=== PATIENT | female | born 1955 | race Caucasian/White ===

== ENCOUNTER 2024-03-08 15:17 | Inpatient (IN) | payer MEDICARE, OTHER ==
[~2024-03-08] VITALS: Ht 162.6 cm; Wt 70.3 kg
[2024-03-08 15:40] VITALS: O2SAT 98
[2024-03-08 16:12] LABS: APPEARANCE,URINE Clear (CLEAR); BILIRUBIN,URINE Negative (NEGATIVE); BLOOD, URINE Negative Ery/uL (NEGATIVE); COLOR,URINE YELLOW (YELLOW); KETONES,URINE Negative (NEGATIVE); LEUKOCYTE ESTERASE ,URINE Trace (NEGATIVE); NITRITE, URINE Negative (NEGATIVE); PROTEIN,URINE Negative (NEGATIVE); UGLUCOSE Negative (NEGATIVE); UROBILINOGEN,URINE 0.2 EU/dL (0.2)
[2024-03-08 16:20] LABS: RBC,URINE 0-2 /HPF (0-2); WBC,URINE 0-2 /HPF (0-3)
[2024-03-08 16:21] LABS: ADD URINE CULTURE NO; BACTERIA,URINE Few /HPF (None Seen); SQUAMOUS EPITHELIAL CELL,UR Few /HPF (None Seen)
[2024-03-08] MEDS ORDERED: VALB40CA2 PO (16:28)
[2024-03-08] MEDS ORDERED: ACET325T53 PO (16:28)
[2024-03-08] MEDS ORDERED: OLAN5TAB3 PO (16:28)
[2024-03-08 16:31] LABS: AMPHETAMINE, URINE NEGATIVE (NEGATIVE); BARBITURATE, URINE NEGATIVE (NEGATIVE); BENZODIAZEPINE, URINE NEGATIVE (NEGATIVE); CANNABINOID, URINE NEGATIVE (NEGATIVE); COCCAINE, URINE NEGATIVE (NEGATIVE); OPIATE, URINE NEGATIVE (NEGATIVE); PHENCYCLIDINE SCREEN,URINE NEGATIVE (NEGATIVE)
[2024-03-08 17:03] LABS: BASOPHILS % (AUTO) 0.3 % (0.0-2.0); EOSINOPHILS # (AUTO) 0.2 K/uL (0.0-0.7); EOSINOPHILS % (AUTO) 3.9 % (0.0-6.0); HEMATOCRIT 31 % (33-45); HEMOGLOBIN 9.8 g/dL (11.5-14.8); LYMPHOCYTES % (AUTO) 38.5 % (20.0-44.0); MEAN CORPUSCULAR HEMOGLOBIN 27 PG (26.0-33.0); MEAN CORPUSCULAR HGB CONC 32 g/dl (31.0-36.0); MEAN CORPUSCULAR VOLUME 83 fL (82-100); MONOCYTES # (AUTO) 0.5 K/uL (0.1-1.30); NEUTROPHILS # (AUTO) 2.5 K/uL (1.8-8.9); NEUTROPHILS % (AUTO) 48.3 % (43.0-81.0); PLATELET COUNT (AUTO) 226 K/uL (150-450); RED BLOOD CELL COUNT(AUTO) 3.68 MIL/uL (4.0-5.2); RED CELL DISTRIBUTION WIDTH 15.2 % (11.5-15.0); WHITE BLOOD COUNT (AUTO) 5.2 K/uL (4.3-11.0)
[2024-03-08 17:11] LABS: CALCIUM, SERUM 8.6 mg/dL (8.5-10.1); CARBON DIOXIDE 33 mmol/L (21-32); CHLORIDE 106 mmol/L (98-107); CREATININE 0.8 mg/dL (0.6-1.3); GLUCOSE 87 mg/dL (74-106); POTASSIUM 4.1 mmol/L (3.5-5.1); SODIUM SERUM 141 mmol/L (136-145); UREA NITROGEN, BLOOD 19 mg/dL (7-18)
[2024-03-08 17:18] LABS: ALKALINE PHOSPHATASE 89 U/L (46-116); ASPARTATE AMINOTRANSFERASE 28 U/L (15-37); BILIRUBIN,TOTAL 0.5 mg/dL (0.2-1.0)
[2024-03-08 17:19] LABS: ALANINE AMINOTRANSFERASE 30 U/L (12-78); ALBUMIN 2.6 g/dL (3.4-5.0); ALCOHOL, BLOOD < 3 mg/dL (0-10); SALICYLATE 1.1 mg/dL (2.8-20.0); TOTAL PROTEIN, SERUM 6.9 g/dL (6.4-8.2)
[2024-03-08 17:36] LABS: BILIRUBIN,DIRECT 0.1 mg/dL (0.0-0.2)
[2024-03-08 17:37] LABS: ACETAMINOPHEN <10 ug/ml (10-30)
[2024-03-08] MEDS ORDERED: ACETAMINOPHEN 325 MG TABLET PO PRN (23:00)
[2024-03-08] MEDS ORDERED: MAG HYDROX/AL HYDROX/SIMETH 30 ML UDC PO PRN (23:00)
[2024-03-08] MEDS ORDERED: clonazePAM 1 MG TABLET PO PRN (23:00)
[2024-03-08] MEDS ORDERED: MAGNESIUM HYDROXIDE 30 ML UDC PO PRN (23:00)
[2024-03-08] MEDS ORDERED: TEMAZEPAM 7.5 MG CAPSULE PO PRN ×2 (23:00)
[2024-03-08] MEDS ORDERED: LEVO175T7 MT (23:25)
[2024-03-08] MEDS ORDERED: MIRT-90 MT (23:25)
[2024-03-08] MEDS: BLOOD SUGAR DIAGNOSTIC 1 EACH STRIP IN ONE (23:43)
[2024-03-09] MEDS: LEVOTHYROXINE SODIUM 175 MCG TABLET PO SCH (07:57)
[2024-03-09 08:00] VITALS: BP 140/65; TEMP 98.6; O2SAT 96
[2024-03-09] MEDS ORDERED: clonazePAM 0.5 MG TABLET PO PRN (08:00)
[2024-03-09] MEDS: OLANZAPINE 10 MG TABLET PO SCH (08:43)
[2024-03-09] MEDS: OLANZAPINE 2.5 MG TABLET PO SCH (09:07)
[2024-03-09 16:00] VITALS: BP 136/60; TEMP 97.6; O2SAT 98
[2024-03-09 16:03] LABS: CHOLESTEROL 111 mg/dL (<200); HDL CHOLESTEROL 60 mg/dL (40-60); LDL 60 mg/dL (0-99); TRIGLYCERIDES 30 mg/dL (30-150)
[2024-03-09 16:08] LABS: ALBUMIN 2.6 g/dL (3.4-5.0); BILIRUBIN,TOTAL 0.5 mg/dL (0.2-1.0); CALCIUM, SERUM 8.4 mg/dL (8.5-10.1); CREATININE 0.7 mg/dL (0.6-1.3); POTASSIUM 4.6 mmol/L (3.5-5.1); TOTAL PROTEIN, SERUM 7.1 g/dL (6.4-8.2)
[2024-03-09 20:19] VITALS: BP_SYST 143; BP_DIAS 53; BP_DIAS 63; TEMP 97.9; O2SAT 98
[2024-03-10 08:00] VITALS: BP 153/79; TEMP 98.2; O2SAT 100
[2024-03-10] MEDS: clonazePAM 0.5 MG TABLET PO PRN (15:44)
[2024-03-10 16:00] VITALS: BP 165/55; TEMP 98.2; O2SAT 100
[2024-03-10 20:28] VITALS: BP 132/58; TEMP 98.2; O2SAT 98
[2024-03-11 08:00] VITALS: BP 162/82; TEMP 98.2; O2SAT 100
[2024-03-11] MEDS: AMLODIPINE BESYLATE 5 MG TABLET PO SCH (15:34)
[2024-03-11 15:52] LABS: CREATININE 0.8 mg/dL (0.6-1.3)
[2024-03-11 16:00] VITALS: BP 173/63; TEMP 98.6; O2SAT 100
[2024-03-11 20:27] VITALS: BP 138/96; TEMP 98.2; O2SAT 98
[2024-03-12 08:00] VITALS: BP 165/69; TEMP 98.7; O2SAT 100
[2024-03-12 16:00] VITALS: BP 160/99; TEMP 98.7; O2SAT 100
[2024-03-13 08:00] VITALS: BP 190/78; TEMP 97.9; O2SAT 100
[2024-03-13 16:00] VITALS: BP 176/94; TEMP 98.1; O2SAT 100
[2024-03-13] MEDS: hydrALAZINE HCL 25 MG TABLET PO PRN (16:51)
[2024-03-13 20:00] VITALS: BP 145/70; TEMP 98.3; O2SAT 99
[2024-03-14 08:00] VITALS: BP 156/61; TEMP 97.9; O2SAT 100
[2024-03-14 16:00] VITALS: BP 128/67; TEMP 97.8; O2SAT 100
[2024-03-14 20:00] VITALS: BP 146/69; TEMP 98.1; O2SAT 100
[2024-03-15 08:00] VITALS: BP 111/92; TEMP 97.8; O2SAT 100
[2024-03-15 16:01] VITALS: BP 149/63; TEMP 98.2; O2SAT 98
[2024-03-15 20:00] VITALS: BP 148/78; TEMP 98.5; O2SAT 99
[2024-03-16 08:00] VITALS: BP 164/68; TEMP 97.8; O2SAT 98
[2024-03-16 16:00] VITALS: BP 139/69; TEMP 98.6; O2SAT 98
[2024-03-16 20:20] VITALS: BP 150/62; TEMP 98.4; O2SAT 97
[2024-03-17 08:00] VITALS: BP 135/63; TEMP 97.9; O2SAT 100
[2024-03-17 16:00] VITALS: BP 153/55; TEMP 97.7; O2SAT 98
[2024-03-17 20:22] VITALS: BP 152/59; TEMP 98.2; O2SAT 97
[2024-03-18] MEDS ORDERED: OSELTAMIVIR PHOSPHATE 75 MG CAPSULE ONE (03:13)
[2024-03-18 08:00] VITALS: BP 144/76; TEMP 98; O2SAT 99
[2024-03-18 16:00] VITALS: BP 112/51; TEMP 98.7; O2SAT 97
[2024-03-18 20:10] VITALS: BP 139/63; TEMP 98; O2SAT 98
[2024-03-19 08:00] VITALS: BP 157/85; TEMP 98; O2SAT 100
[2024-03-19 16:00] VITALS: BP 149/61; TEMP 98.1; O2SAT 97
[2024-03-19 19:58] VITALS: BP 135/52; TEMP 98.2; O2SAT 100
[2024-03-20 08:00] VITALS: BP 149/70; TEMP 98; O2SAT 98
[2024-03-20 08:16] VITALS: BP 149/70
== END 2024-03-20 14:45 | DRG 885 ==
LOC: ER 15:25 → GPS 20:59
PROVIDERS: ADMIT Psychiatry & Neurology Psychiatry; ATTEND Internal Medicine
DX: F29 Unspecified psychosis not due to a substance or known physiological condition (principal); I11.0 Hypertensive heart disease with heart failure; I50.22 Chronic systolic (congestive) heart failure; F25.9 Schizoaffective disorder, unspecified; F41.9 Anxiety disorder, unspecified; F32.9 Major depressive disorder, single episode, unspecified; Z20.822 Contact with and (suspected) exposure to COVID-19; E03.9 Hypothyroidism, unspecified; G31.84 Mild cognitive impairment of uncertain or unknown etiology
CPT/HCPCS: 36415; 80048-TC; 80053-TC; 80061-TC; 80076-TC; 81001; 82565-TC; 82962-TC; 85025-TC; 87081-TC; 97110-TC; 97116-TC; 97530-TC; G0480